=== PATIENT | female | born 1960 | race Caucasian/White ===

== ENCOUNTER 2023-07-18 09:06 | Emergency (ER) | payer MEDICAID ==
[~2023-07-18] VITALS: Ht 165.1 cm; Wt 54.5 kg
[~2023-07-18 09:06] MED LIST: NO HOME MEDS
[2023-07-18 09:27] VITALS: BP 102/60; PULSE 77; RESP 18; TEMP 97.8; O2SAT 96
[2023-07-18] MEDS ORDERED: CEFD300C3 PO (11:52)
== END 2023-07-18 12:03 | disposition home or self-care (01) ==
LOC: ER 09:07
DX: J40 Bronchitis, not specified as acute or chronic (principal); Z72.89 Other problems related to lifestyle; Z20.822 Contact with and (suspected) exposure to COVID-19; Z79.899 Other long term (current) drug therapy
CPT/HCPCS: 36415; 71046; 87502; 87503; 87811; 99284

== ENCOUNTER 2025-03-24 14:59 | Inpatient (IN) | payer MEDICARE, MEDICAID ==
[2025-03-23 22:00] VITALS: BP 137/85; PULSE 87; RESP 18; TEMP 97.3; O2SAT 96
[~2025-03-24] VITALS: Ht 175.3 cm; Wt 78.0 kg
[~2025-03-24 14:59] MED LIST changes: +CEFD300C3 PO
--- NOTE | 2025-03-24 15:22 | Physician Documentation ---
History of Present Illness ~ Chief Complaint: ALOC Stated Complaint: ALOC Time Seen by MD: 15:13 Primary Medical Doctor: NONE HPI History, review of systems, and physical examination are limited secondary to clinical condition. This is a 64-year-old female who was found wandering while wearing winter jacket in the 85 degree weather approximately a mi away from the address she gave us her home address. She was found to be altered. No obvious trigger provocation. Patient is not alert and oriented time or situation. She reports complaint of a right pinky pain. Social history is unknown Medication Reconciliation Allergies: Coded Allergies: No Known Allergies (Unverified , 03/24/25) Scheduled Cefdinir (Cefdinir), 300 MG PO BID Miscellaneous Medications Home Med List (No Home Medications), (Reported) Past Medical History Past Medical History: No Pertinent History Past Surgical History: no surgical history Alcohol Use: Occasionally Drug Use: none Lives with: Family Lives In: Home Occupation: unemployed Review of Systems ROS 10 point review of systems was performed and unless noted above in HPI is negative for acute process/complaint. Physical Exam Vital Signs: Temperature: 99.0, Source: Oral, Heart Rate: 152, Respiratory Rate: 16, BP: 191/101, Pulse Oximetry: 94, Weight: 78.000 Physical Exam GENERAL: Awake, alert, oriented, GCS 15, no apparent distress, non-toxic appearing, answers questions, follows commands appropriately. HEENT: Atraumatic, normocephalic, pupils equal, extraocular muscles intact, sclerae anicteric, mucus membranes moist, oropharynx is clear, no stridor. NECK: supple, full active range of motion, trachea midline, no thyromegaly, no lymphadenopathy, no JVD. CARDIOVASCULAR: Tachycardic and irregularly irregular rate/rhythm, no murmurs/gallops/rubs, Pulses are 2+ in all extremities and symmetric. Capillary refill less than 2 seconds. PULMONARY: Nonlabored, good air movement ,no respiratory distress, speaking in full sentences, clear to auscultation bilaterally, no wheezing, no ronchi, no rales, no accessory muscle use. GASTROINTESTINAL: Soft, non-tender, non-distended, normal active bowel sounds, no organomegaly, no pulsatile masses, no CVA tenderness. NEUROLOGIC: Lucid with normal mental status. Normal facial symmetry. Moves all extremities symmetrically and with purpose. No truncal ataxia. Speech is fluid without evidence of dysarthria or aphasia, no focal deficits appreciated. MUSCULOSKELETAL: There is full range of motion of all extremities. There is no joint pain or joint swelling or joint erythema. There is no muscle pain or tenderness or swelling. EXTREMITIES: warm, well-perfused, no cyanosis, no clubbing, no edema, no acute deformities. Skin: warm, dry, no rashes or lesions, no jaundice, no petechiae orpurpura. No ecchymosis. PSYCHIATRIC: Normal affect, normal insight, normal concentration. Focused exam: [Right pinky appears to be tender to palpation over the 1st joint, neurovascularly intact distally] Progress Results/Orders Results/Orders Orders - DELFINO RING DO Electrocardiogram (03/24/25 15:15) Chest,Single View (03/24/25 15:29) Saline Lock (03/24/25 15:15) Accucheck (03/24/25 15:15) Accucheck (03/24/25 17:15) Accucheck (03/24/25 19:15) Ct Head (03/24/25 15:45) Recheck Temp (03/24/25 ) Hand, Complete (3vw Min) (03/24/25 15:46) Cult Urine + [place] Ct (03/24/25 16:35) Apply Splint Finger Static (03/24/25 ) Page Hospitalist (03/24/25 16:39) Fill Out Med Reconciliation (03/24/25 16:39) Completed Orders - DELFINO RING DO Drug Screen, Urine (03/24/25 15:15) Electrocardiogram (03/24/25 15:15) Cbc/Diff (03/24/25 15:15) CK (03/24/25 15:15) ESR (03/24/25 15:15) C-Reactive Protein (03/24/25 15:15) PHOS (03/24/25 15:15) Pt Inr (03/24/25 15:15) PTT (03/24/25 15:15) Chest,Single View (03/24/25 15:29) PBNP (03/24/25 15:15) MG (03/24/25 15:15) TSH (03/24/25 15:15) Free T4 (03/24/25 15:15) Normal Saline 1000ml (Sodium Chloride 10 (03/24/25 15:15) Ct Head (03/24/25 15:45) CMP (03/24/25 15:15) Hs Troponin I W Calculations (03/24/25 15:15) Hs Troponin I W Calculations (03/24/25 17:15) Hs Troponin I W Calculations (03/24/25 18:15) Ethanol (03/24/25 15:15) Hand, Complete (3vw Min) (03/24/25 15:46) Ua W/Microscopic, Cult If Ind (03/24/25 16:12) Ceftriaxone 2gm/D5w 50ml Bag (Rocephin 2 (03/24/25 16:40) Normal Saline 1000ml (Sodium Chloride 10 (03/24/25 16:40) Diazepam Inj (Valium Inj) (03/24/25 16:40) Lacticsepsis (03/24/25 16:39) Vital Signs 03/24/25 03/24/25 03/24/25 15:03 15:19 16:45 Temp 99.0 99.0 Pulse 152 151 Resp 16 16 16 B/P (MAP) 191/101 191/101 (131) Pulse Ox 94 95 O2 Flow Rate 0 Laboratory Tests Test 03/24/25 15:32 03/24/25 16:12 03/24/25 16:56 White Blood Count 10.0 Red Blood Count 4.51 Hemoglobin 14.2 Hematocrit 41.3 Mean Corpuscular Volume 91.7 Mean Corpuscular Hemoglobin 31.4 H Mean Corpuscular Hemoglobin Concent 34.2 Red Cell Distribution Width 12.8 Platelet Count 235 Mean Platelet Volume 8.1 Neutrophils (%) (Auto) 77.8 H Lymphocytes (%) (Auto) 15.2 L Monocytes (%) (Auto) 5.7 Eosinophils (%) (Auto) 0.8 Basophils (%) (Auto) 0.5 Neutrophils # (Auto) 7.8 H Lymphocytes # (Auto) 1.5 Monocytes # (Auto) 0.6 Eosinophils # (Auto) 0.1 Basophils # (Auto) 0.0 CBC Comment Erythrocyte Sedimentation Rate 8 Prothrombin Time 10.9 INR International Normalized Ratio 1.1 Activated Partial Thromboplast Time 24 Coagulation Comments Sodium Level 146 H Potassium Level 3.5 Chloride Level 108 H Carbon Dioxide Level 23.2 L Anion Gap 15 Blood Urea Nitrogen 29 H Creatinine 1.41 H Estimated GFR/1.73 m2 37 BUN/Creatinine Ratio 20.6 H Glucose Level 114 H Calcium Level 9.5 Phosphorus Level 4.1 Magnesium Level 1.9 Total Bilirubin 0.9 Aspartate Amino Transf (AST/SGOT) 52 H Alanine Aminotransferase (ALT/SGPT) 26 Alkaline Phosphatase 75 Total Creatine Kinase 1290 H Troponin I High Sensitivity 31 36 C-Reactive Protein 1.90 H Pro-B-Type Natriuretic Peptide 2087 H Total Protein 7.5 Albumin 4.4 Globulin 3.1 Albumin/Globulin Ratio 1.4 Thyroid Stimulating Hormone (TSH) 3.47 Free Thyroxine 1.28 Chemistry Comments Ethyl Alcohol Level < 10 Urine Specimen Description Voided Urine Color Yellow Urine Clarity Cloudy Urine pH 7.5 Urine Specific Kidder 1.020 Urine Protein 100 H Urine Glucose (UA) Negative Urine Ketones 40 H Urine Occult Blood Small Urine Nitrite Negative Urine Bilirubin Small Urine Urobilinogen 0.2 Urine Leukocyte Esterase Moderate H Urine RBC 3-10 Urine WBC Tntc H Urine Squamous Epithelial Cells Few Urine Transitional Epithelial Cells Few Urine Triple Phosphate Crystals 1+ Urine Bacteria 4+ Urine Culture Indicated Indicated Volume Urine Centrifuged 10 ml Urine Comment Urine Opiates Screen Negative Urine Methadone Screen Negative Urine Fentanyl Screen Negative Urine Barbiturates Screen Negative Urine Phencyclidine Screen Negative Urine Amphetamines Screen Positive Urine Benzodiazepines Screen Negative Urine Cocaine Screen Negative Urine Cannabinoids Screen Negative Drug Screen Comment Lactic Acid Level 1.5 Troponin I High Sens Percent Delta 16 Troponin I Hi Sens Absolute Change 5 Microbiology Date/Time Source Procedure Growth Status 03/24/25 16:35 Urine Voided Urine Culture - Preliminary Gram Negative [place] Resulted EKG/XRAY/CT/US/VASC/MRI EKG : Additional Comment EKG was obtained and interpreted by myself shows sinus tachycardia, rate of 149, short IA, narrow QRS, no QT prolongation, normal axis, no STEMI. Medical Decision Making Findings Facility Status: ED Holds, [facility] process The plan was discussed with the patient, who demonstrates clear understanding of the plan and is in agreement with the plan unless otherwise noted in the chart. All questions have been answered, all concerns were addressed unless otherwise documented. I was available throughout their ED stay for frequent reassessment and questions. Differential Diagnoses (considered and possible or likely): [Dehydration, heat stroke, electrolyte derangement, UTI, pneumonia, occult bacteremia, alcohol intoxication, alcohol withdrawal, drug toxidrome, intracranial process such as bleed, mass] ??Differential Diagnoses (considered and unlikely, not requiring evaluation currently): [No evidence of lateralizing signs to suspect a stroke at this time] MDM Data Please see HPI for the following: Independent Historians and external Records Review. Historian: Very limited information from patient Independent Historians: ?[EMS crew, record review] Medication Management: [Reviewed medication list] Social History and determinants: [Reviewed] Please see the body of the note for the following: Any independent interpretations of ECG, imaging studies. All vitals signs/haemodynamics, ordered tests were independently reviewed and interpreted by myself. Nursing triage complaint and vitals reviewed, additional nursing notes were reviewed as available and I agree unless otherwise noted or documented in contradiction in the chart Vital Signs: Independently reviewed Labs: Independently interpreted Imaging: Independently interpreted Old Medical Records: Independently reviewed, see [facility] for relevant summary and information Pulse Oximetry: [97%s] interpreted as [normal on room air] by me [Wireless Manager: [Tachycardic and irregularly irregular what appears to be AFib with a RVR] reviewed and interpreted by me] Additionally notably showing: Persistently tachycardic with a sinus tachycardia, going into 170s, hypotensive, UA positive for UTI, CT is negative. Chest x-ray is unremarkable. Rest of laboratory workup was unremarkable. Tests considered but not ordered include: [Not applicable] Social Determinants of Health Impact: Patient was evaluated in [facility], or [facility] [place] access to healthcare due to below par ratio of patient to medical providers. [] Comorbid Conditions Impacting Present Evaluation and Care/Treatment: [Methamphetamine abuse] Management Discussions with other Healthcare Providers: [Hospitalist regarding admission] Treatment and Disposition Medication Management (Given or considered): [Fluid resuscitation was provided for treatment of clinically and/or laboratory apparent dehydration.]. See EMR for details Consideration for Hospitalization/Escalation/Deescalation of Care: Admission for observation has been considered, and appears to be necessary for resolution of her altered mental status. It is not clear where that this is methamphetamine psychosis, urosepsis, combined process. ?ED Course:?[@1521 patient informed the nurse that was taking care of her that she has done �a lot of meth today, but it does not feel like my regular meth�.] This has a degree of complexity to her altered mental status as noted above. UTI and was treated. Benzos and rate control established. Continues to be altered. ?Shared decision making:?[] Code status:?FULL Please see the full Electronic Medical Record for full details of nursing documentation, medications list, other records of complete past medical history and conditions, vital signs, laboratory studies, and any radiologic study interpretations by radiologists. Portions of this note were completed using Spoqa dictation software and as a result there may exist minor errors in spelling. I have reviewed elements of past family and social history and agree as included in note. Departure Disposition: 09 ADMITTED INPATIENT Impression: Primary Impression: Altered mental status Additional Impressions: Methamphetamine intoxication Acute kidney injury Urinary tract infection Sepsis Condition: Fair Referrals: NO PRIMARY CARE PROVIDER (PCP) Signature Scribe Signature: No scribe Attestation: This note accurately reflects clinical decisions, work performed by myself, DO MARÍA ELENA Mcbride NICHOLAS M DO March 24, 2025 15:22
--- NOTE | 2025-03-24 15:25 | ELECTROCARDIOGRAPH REPORT ---
[facility] Test Date: 2025-03-24 Test Time: 15:23:19 Pat Name: JAMES MILLER Department: [facility] Patient ID: [id number] Room: [place] [address] Gender: F Vegetable Farmworker: : 1960 Requested By: DELFINO RING Order Number: [id number] Reading MD: Dr. Anant Matthew Measurements Intervals [place] Rate: 149 P: 26 ME: 67 QRS: -81 QRSD: 91 T: 65 QT: 310 QTc: 488 Interpretive Statements Sinus tachycardia Left anterior fascicular block Abnormal R-wave progression, late transition ST depression, probably rate related Borderline prolonged QT interval Electronically Signed On 03-25-2025 15:45:[address] Anant Matthew Please click the below link to view image of tracing.
[2025-03-24] MEDS: normal saline 1000ML IV soln IVB ONE (15:35)
--- NOTE | 2025-03-24 15:38 | RADIOLOGY REPORT ---
CHEST RADIOGRAPH Indication: Weakness Technique: Single frontal view of the chest was obtained Comparison: None FINDINGS: Lines and Tubes: None Lungs: No focal consolidation. Pleura: No effusion. No pneumothorax. Cardiomediastinal contours: Unremarkable Bones: No acute osseous abnormality. IMPRESSION: No acute cardiopulmonary disease.
--- NOTE | 2025-03-24 16:00 | RADIOLOGY REPORT ---
CLINICAL INFORMATION: 64 years old, Female; Altered mental status. TECHNIQUE: Axial imaging was obtained through the brain without contrast. Coronal and sagittal reform atted images were obtained, reviewed, and stored. Images were reviewed in brain and bone windows. Al l CT scans at this medical facility are performed using dose modulation techniques as appropriate to a performed exam including the following: Automated exposure control was utilized; adjustment of the MA and/or KV according to patient size; and use of iterative reconstruction technique. CTDIvol = 49.5 3 mGy DLP = 1006.35 mGy-cm COMPARISON: None FINDINGS: Motion artifact limits evaluation. No acute intracranial hemorrhage visualized given the li mitations of the exam. Scattered areas of hypoattenuation are seen in the periventricular and subcort ical white matter, which are nonspecific but most likely sequelae of small vessel ischemic disease. C hronic lacunar infarct in the left basal ganglia. The ventricles and sulci are within normal limits i n size for age. Basal cisterns are patent. No acute calvarial abnormality identified given the limit ations of the examination. Paranasal sinuses and mastoid air cells appear grossly clear. IMPRESSION: 1. Motion limited study. 2. No acute abnormality identified given the limitations of the examination.
[2025-03-24 16:04] LABS: BASOPHILS % (AUTO) 0.5 % (0-1); EOSINOPHILS # (AUTO) 0.1 X10'3 (0-0.9); EOSINOPHILS % (AUTO) 0.8 % (0-6); HEMATOCRIT 41.3 % (35.0-45.0); HEMOGLOBIN 14.2 g/dl (12.0-16.0); LYMPHOCYTES # (AUTO) 1.5 X10'3 (1.1-4.8); LYMPHOCYTES % (AUTO) 15.2 % (21-51); MEAN CORPUSCULAR HEMOGLOBIN 31.4 PG (27.0-31.0); MEAN CORPUSCULAR HGB CONC 34.2 g/dL (33.0-36.5); MEAN CORPUSCULAR VOLUME 91.7 FL (78-98); MEAN PLATELET VOLUME 8.1 FL (7.4-10.4); MONOCYTES # (AUTO) 0.6 X10'3 (0-0.9); MONOCYTES % (AUTO) 5.7 % (2-12); NEUTROPHILS # (AUTO) 7.8 X10'3 (1.8-7.7); NEUTROPHILS % (AUTO) 77.8 % (42-75); PLATELET COUNT 235 X10'3 (140-440); RED BLOOD COUNT 4.51 X10'6 (4.20-5.60); RED CELL DISTRIBUTION WIDTH 12.8 % (11.5-14.5)
--- NOTE | 2025-03-24 16:21 | RADIOLOGY REPORT ---
CLINICAL INDICATION: Right pinky pain TECHNIQUE: Right DI HAND, COMPLETE (3VW MIN) Comparison: None FINDINGS/IMPRESSION: : Subtle linear lucency at the ulnar base of the 5th proximal phalanx is suspicious for a nondisplaced fracture. Diffuse degenerative changes of the MCP and D IP joints
[2025-03-24 16:22] LABS: BILIRUBIN,URINE SMALL (Neg); CLARITY,URINE CLOUDY (Clear); COLOR,URINE YELLOW (Yellow); GLUCOSE, URINE NEGATIVE (Neg); KETONES,URINE 40 mg/dl (Neg); LEUKOCYTE ESTERASE ,URINE MODERATE (Neg); NITRITES, URINE NEGATIVE (Neg); OCCULT BLOOD,URINE SMALL (Neg); PH,URINE 7.5 (4.8-8.0); PROTEIN,URINE 100 mg/dl (Neg); UROBILINOGEN,URINE 0.2 E.U/dL (0.2-1.0)
[2025-03-24 16:24] LABS: ALANINE AMINOTRANSFERASE 26 U/L (12-78); ALBUMIN 4.4 G/DL (3.4-5.0); ALBUMIN/GLOBULIN RATIO 1.4 (1.1-1.5); ALKALINE PHOSPHATASE 75 IU/L (46-116); ANION GAP 15 (8-16); ASPARTATE AMINO TRANSFERASE 52 U/L (10-37); BILIRUBIN,TOTAL 0.9 MG/DL (0.1-1.0); BLOOD UREA NITROGEN 29 MG/DL (7-18); BUN/CREATININE RATIO 20.6 (10.0-20.0); CALCIUM 9.5 MG/DL (8.5-10.1); CHLORIDE 108 MMOL/L (99-107); CREATININE 1.41 MG/DL (0.40-0.90); GLUCOSE 114 MG/DL (70-104); POTASSIUM 3.5 MMOL/L (3.5-5.1); SODIUM 146 MMOL/L (135-145); TOTAL CARBON DIOXIDE 23.2 MMOL/L (24-32); TOTAL PROTEIN 7.5 G/DL (6.4-8.2); eCRCL 41 ML/MIN; eGFR 37 ML/MIN
[2025-03-24 16:27] LABS: UA COLLECTION TYPE VOIDED
[2025-03-24 16:28] LABS: APTT 24 SECONDS (22-32); INR 1.1 INR; PROTHROMBIN TIME 10.9 SECONDS (9.0-12.0)
[2025-03-24 16:34] LABS: BACTERIA,URINE 4+ /HPF (Neg); WBC,URINE TNTC /HPF (0-4)
[2025-03-24 16:35] LABS: SQUAMOUS EPITHELIAL CELL,UR FEW /LPF (FEW); TRANSITIONAL EPI CELLS,URINE FEW /HPF; TRIPLE PHOSPHATE CRYST 1+ /HPF (NEGATIVE)
[2025-03-24 16:36] LABS: FREE T4 (FREE THYROXINE) 1.28 NG/DL (0.73-1.40); MAGNESIUM 1.9 MG/DL (1.5-2.4); PHOSPHORUS 4.1 MG/DL (2.3-4.5); PRO BRAIN NATRIURETIC PEPTIDE 2087 PG/ML (0-125); THYROID STIMULATING HORMONE 3.47 ulU/ml (0.34-4.50)
[2025-03-24 16:40] LABS: CREATINE KINASE 1290 U/L (26-192)
[2025-03-24] MEDS ORDERED: diltiazem 5mg/ml 5ml inj. IV ONE (16:40)
[2025-03-24 16:41] LABS: ETHANOL < 10 MG/DL (<10)
[2025-03-24] MEDS: normal saline 1000ml 1,000 ML IV ONE (16:44)
[2025-03-24 16:55] LABS: URINE AMPHETAMINE SCREEN POSITIVE (Neg); URINE BARBITUATE SCREEN NEGATIVE (Neg); URINE BENZODIAZEPINES SCREEN NEGATIVE (Neg); URINE CANNABINOID SCREEN NEGATIVE (Neg); URINE COCAINE SCREEN NEGATIVE (Neg); URINE METHADONE SCREEN NEGATIVE (Neg); URINE OPIATE SCREEN NEGATIVE (Neg); URINE PHENCYCLIDINE SCREEN NEGATIVE (Neg)
[2025-03-24] MEDS: CefTRIAXone 2gm/D5W 50ml BAG 50 ML IV ONE (16:57)
[2025-03-24] MEDS: diazepam inj 5 MG/ML inj. IV ONE (16:59)
[2025-03-24] MEDS ORDERED: potassium Cl 20 mEq SR tablet PO PRN (17:25)
[2025-03-24] MEDS ORDERED: HYDROcodone/acetaminophen 5mg/325mg tablet PO PRN (17:25)
[2025-03-24] MEDS ORDERED: ondansetron/PF 4mg/2ml inj IV PRN (17:25)
[2025-03-24] MEDS ORDERED: diphenhydrAMINE 25mg capsule PO PRN (17:25)
[2025-03-24] MEDS ORDERED: magnesium hydroxide 30ml (MOM) UD suspension PO PRN (17:25)
[2025-03-24] MEDS ORDERED: diphenhydrAMINE 50 mg/ml inj IV PRN (17:25)
[2025-03-24] MEDS ORDERED: magnesium sulf-water 2g/50mL 50 ML IV PRN (17:25)
[2025-03-24] MEDS ORDERED: HYDROcodone/acetaminophen 10/325mg tab PO PRN (17:25)
[2025-03-24] MEDS ORDERED: bisacodyl 10mg suppository rectal RC PRN (17:25)
[2025-03-24] MEDS ORDERED: magnesium sulf-water 4G/100mL 100 ML IV PRN (17:25)
[2025-03-24] MEDS ORDERED: magnesium Cl slow-release 64mg tablet PO PRN (17:25)
[2025-03-24] MEDS ORDERED: acetaminophen 325mg tablet PO PRN ×2 (17:25)
[2025-03-24] MEDS ORDERED: ondansetron 4mg rapidly disintigrating tab PO PRN (17:25)
[2025-03-24] MEDS ORDERED: potassium Cl 40MEQ/1/2NS 520ml 520 ML IV PRN (17:25)
[2025-03-24] MEDS ORDERED: morphine 2 MG/ML inj. syringe IV PRN ×2 (17:25)
[2025-03-24] MEDS ORDERED: mag hydrox/Alum hydrox/simeth 30ml oral suspension PO PRN (17:25)
[2025-03-24] MEDS ORDERED: acetaminophen 650mg rectal suppository RC PRN (17:25)
[2025-03-24] MEDS ORDERED: diazepam inj 5 MG/ML inj. IV PRN (18:05)
[2025-03-24] MEDS: dextrose 5%-1/2 normal saline 1,000 ML IV SCH (18:06)
--- NOTE | 2025-03-24 18:12 | HISTORY AND PHYSICAL ---
History & Physical Providers to Chief complaint, altered level of consciousness ~ History of Present Illness Reason for Admit\Complaint: As above History of Present Illness This is a 64 years old white female, with history of multiple medical problems including chronic kidney disease, hypertension uncontrolled, chronic CHF ejection fraction 50% associated with pulmonary hypertension March 21, 2025, history of chronic amphetamine abuse including currently, chronic tobacco abuse including currently, presented today to emergency department chief complaint altered level of consciousness; History, review of systems, and physical examination are limited secondary to clinical condition. This is a 64-year-old female who was found wandering while wearing winter jacket in the 85 degree weather approximately a mi away from the address she gave us her home address. She was found to be altered. No obvious trigger provocation. Patient is not alert and oriented time or situation.She reports complaint of a right pinky pain. Emergency department she was evaluated by physician was diagnosed with chronic amphetamine abuse including currently, acute amphetamine intoxication, rhabdomyolysis, acute renal failure, UTI, sepsis and decision was made to admit patient for further evaluation and treatment, patient started on IV fluids and IV antibiotics. No additional complaint or concern. Allergies: Coded Allergies: No Known Allergies (Unverified , 03/24/25) Active prescriptions I reviewed reconciled Home Medications Home Medications Active Cefdinir 300 Mg Capsule 300 Mg PO BID 7 Days Reported No Home Medications (Home Med List) Each Past Medical History Past Medical History As in HPI Past Surgical History Surgical History Comment As in HPI Past Social History Social History Comment Positive for chronic amphetamine and tobacco abuse including currently, deny alcohol abuse, live with the family good social support Health Maintenance Health Maintenance Noncontributory ROS ROS Constitutional : no fever , no chills, or weakness. No diaphoresis. Allergic/Immunologic, no lymphadenopathy, no hives, no skin eruptions. Eyes, no recent visual changes, no eye pain, no photophobia. Ears, nose, mouth, throat, no sore throat, no nosebleed, no ear pain. Cardiovascular, no palpitations, skipped beats, chest pain, no peripheral edema, Respiratory, no dyspnea, orthopnea, cough, hemoptysis, chest wall pain. Gastrointestinal, no abdominal pain, nausea, vomiting, constipation or diarrhea. : no dysuria, hematuria, pelvic pain, urethral d/c. Endocrine, no polyuria, polydipsia, recent unintentional weight gain or loss. Hematologic/Lymphatic, no petechiae, no enlarged lymph nodes, no bone pain. Integumentary, no rash, no skin lesions, Musculoskeletal, no muscle aches, or pain, no muscle cramps, no recent change in gait Neurological, positive for altered level of consciousness, no dizziness, no headache, no syncope, no paresthesia. Psychiatric, no delusions, visual hallucinations, or hearing hallucinations. ROS - in rest is as in HPI. Exam Vitals: Vital Signs Date Time Temp Pulse Resp B/P (MAP) Pulse Ox O2 Delivery O2 Flow Rate FiO2 03/24/25 16:45 16 03/24/25 15:19 99.0 151 95 0 Vital signs, stable ,afebrile. Tachycardic, febrile, Pulse Oximetry reflects adequate oxygenation. BMI is 25, weight 78 kg General: well developed, well nourished. Awake , alert, and oriented x4, resting comfortably in the bed, in no acute distress . Skin: Warm, dry, no pallor, no rash or petechiae. HEENT: Atraumatic, normocephalic, EOMI, anicteric sclera B; pink conjunctiva; PERRLA, normal oropharynx, moist oral and nasal mucosa. Tympanic membrane , nose , throat clear. Neck: Trachea midline. Supple, full range of motion, no JVD, bruit , hepatojugular reflex , lymphadenopathy or masses, or other lesions Cardiac: Regular rhythm, regular rate no murmurs, rubs, or gallops. Normal S1 and S2, no S3 noticed. PMI is normal. Respiratory: Equal breath sounds bilaterally, no tachypnea; lungs clear to auscultation bilaterally, no wheezing ,rub or rales, or crackles. Chest wall is symmetric and without deformity. No signs of trauma. Chest wall is nontender. No signs of respiratory distress. Resonance is normal upon percussion bilaterally. Gastrointestinal: Abdomen symmetric, non-distended, soft, non-tender, normal bowel sounds x4 quadrant, normoactive, no hepatosplenomegaly , no masses , no bruit, no flank pain bilaterally. No voluntary guarding, rebound, or rigidity. No tenderness to percussion. No pulsatile masses. Equal femoral pulses. No Glez's sign or McBurney point tenderness. Back; no CVA tenderness bilaterally, no deformities. Neck and back are without deformity as well. No tenderness noted on palpation of the spinous processes. Spinous processes are midline. Cervical, thoracic, and lumbar paraspinal muscles are not tender and are without spasm. : Declined by patient Musculoskeletal: Extremities, normal range of motion, non-tender, muscle strength 5/5 x 4. Negative Homans signs bilaterally on lower extremity. Distal pulses full symmetrical, no clubbing, cyanosis , edema. Neurological: Speech is clear, alert, and oriented x 4. No motor or sensory deficit, deep tendon reflexes normal, cerebellar intact. Cranial nerves II-XII intact. Psych: Alert and or appropriate, normal affect. Vascular: Good distal pulses, which are equal x4; capillary refill less than 2 seconds. Lymphatic, no lymphadenopathy. Diagnostic Data Last Recorded Lab Results: 03/24/25 1532 03/24/25 1532 Diagnostic Data: Laboratory Tests Test 03/24/25 15:32 Prothrombin Time 10.9 SECONDS (9.0-12.0) INR International Normalized Ratio 1.1 INR Activated Partial Thromboplast Time 24 SECONDS (22-32) Coagulation Comments Counseling Services Smoking & Tobacco Cessation: 3-10 Minutes Advance Care Planning Advanced Care plannin - 30 Minutes Additional Plan Assessment Hypertensive emergency Acute amphetamine intoxication Chronic amphetamine use disorder Chronic tobacco abuse including currently Acute renal failure metabolic encephalopathy secondary to all of the above UTI complicated Hypernatremia Sepsis secondary to UTI Rhabdomyolysis Dehydration associated with ketonuria A right 5th seeing of the right hand closed nondisplaced fracture Chronic kidney disease Plan IV fluids keep patient well hydrated euvolemic Correct electrolytes A right hand 5th finger splint PT evaluation and treatment Navigator consult substance abuse Consulted for 5 minutes to stop using tobacco patient agrees started to nicotine patch Additional lab work pending Benzodiazepine on board I reconciled home medications DVT gastropathy prophylaxis addressed Sepsis Screening Reassessment Date: March 24, 2025 Date of Service: March 24, 2025 Billing Provider: MATTY GARCIA MD Common Visit Codes: 94982-JNPPAAE INP/OBS CARE (HIGH) Secondary Visit Codes: 92306-VDABO CHNG SMOKING 3-10M, 65824-[id number] CARE PLAN 30 MINUTES MATTY GARCIA MD March 24, 2025 18:12
[2025-03-24] MEDS: K and/or MAG REPLACEMENT MC SCH (19:59)
[2025-03-24] MEDS: docusate sod 100mg capsule PO SCH (20:04)
[2025-03-24] MEDS ORDERED: temazepam 15mg capsule PO PRN (21:00)
[2025-03-24 22:00] VITALS: BP 137/85; PULSE 87; RESP 18; TEMP 97.3; O2SAT 96
[2025-03-25] VITALS (9 sets, daily range): BP systolic 105–150; BP diastolic 63–86; PULSE 68–79; RESP 12–22; TEMP 97.5–98.6; O2SAT 95–98
[2025-03-25 06:05] LABS: BASOPHILS % (AUTO) 0.6 % (0-1); EOSINOPHILS # (AUTO) 0.2 X10'3 (0-0.9); EOSINOPHILS % (AUTO) 3.7 % (0-6); HEMATOCRIT 33.5 % (35.0-45.0); HEMOGLOBIN 11.6 g/dl (12.0-16.0); LYMPHOCYTES % (AUTO) 30.6 % (21-51); MEAN CORPUSCULAR HEMOGLOBIN 31.6 PG (27.0-31.0); MEAN CORPUSCULAR HGB CONC 34.5 g/dL (33.0-36.5); MEAN CORPUSCULAR VOLUME 91.6 FL (78-98); MEAN PLATELET VOLUME 7.7 FL (7.4-10.4); MONOCYTES # (AUTO) 0.6 X10'3 (0-0.9); MONOCYTES % (AUTO) 8.8 % (2-12); NEUTROPHILS # (AUTO) 3.6 X10'3 (1.8-7.7); NEUTROPHILS % (AUTO) 56.3 % (42-75); PLATELET COUNT 183 X10'3 (140-440); RED BLOOD COUNT 3.66 X10'6 (4.20-5.60); RED CELL DISTRIBUTION WIDTH 12.8 % (11.5-14.5); WHITE BLOOD COUNT 6.5 X10'3 (4.5-11.0)
[2025-03-25 06:22] LABS: ALANINE AMINOTRANSFERASE 17 U/L (12-78); ALBUMIN 3.1 G/DL (3.4-5.0); ALBUMIN/GLOBULIN RATIO 1.2 (1.1-1.5); ALKALINE PHOSPHATASE 59 IU/L (46-116); ANION GAP 9 (8-16); ASPARTATE AMINO TRANSFERASE 44 U/L (10-37); BILIRUBIN,TOTAL 0.7 MG/DL (0.1-1.0); BLOOD UREA NITROGEN 17 MG/DL (7-18); BUN/CREATININE RATIO 19.5 (10.0-20.0); CALCIUM 8.1 MG/DL (8.5-10.1); CHLORIDE 112 MMOL/L (99-107); CHOL/HDL RATIO 2.7 (0.00-4.99); CHOLESTEROL 164 MG/DL (0-200); CREATININE 0.87 MG/DL (0.40-0.90); GLUCOSE 128 MG/DL (70-104); HDL CHOLESTEROL 61 MG/DL (35-60); LDL CHOLESTEROL 89 MG/DL (50-100); MAGNESIUM 1.7 MG/DL (1.5-2.4); POTASSIUM 3.1 MMOL/L (3.5-5.1); SODIUM 146 MMOL/L (135-145); TOTAL PROTEIN 5.7 G/DL (6.4-8.2); TRIGLYCERIDES 72 MG/DL (20-135); eCRCL 66 ML/MIN; eGFR 65 ML/MIN
[2025-03-25] MEDS: CefTRIAXone 2gm/D5W 50ml BAG 50 ML IV SCH (08:11)
[2025-03-25] MEDS: pantoprazole 40mg Tablet.DR PO SCH (08:12)
[2025-03-25] MEDS: nicotine 21mg patch - 24 hr TD SCH (08:12)
[2025-03-25] MEDS: potassium Cl 20 mEq SR tablet PO PRN (08:13)
--- NOTE | 2025-03-25 20:55 | PROGRESS NOTE ---
Daily Progress Note Providers to CC ~ feels better today, better appetite better sleep Central Line/PICC still needed: No Joseph-Non Protocol Joseph Indications Met/Not Met: F/C Indications Not Met Antibiotic Timeout Antibiotic Ordered?: Yes MRSA Education MRSA Education Provided to pt: Yes Subjective As above Objective Vital Signs Date Time Temp Pulse Resp B/P (MAP) Pulse Ox O2 Delivery O2 Flow Rate FiO2 03/25/25 19:29 22 95 Room Air 03/25/25 18:30 80 03/25/25 15:00 97.7 121/63 (82) 03/24/25 18:07 0 Vital signs, stable ,afebrile. Pulse Oximetry reflects adequate oxygenation. General: well developed, well nourished. Awake , alert, and oriented x4, resting comfortably in the bed, in no acute distress . Skin: Warm, dry, no pallor, no rash or petechiae. HEENT: Atraumatic, normocephalic, EOMI, anicteric sclera B; pink conjunctiva; PERRLA, normal oropharynx, moist oral and nasal mucosa. Tympanic membrane , nose , throat clear. Neck: Trachea midline. Supple, full range of motion, no JVD, bruit , hepatojugular reflex , lymphadenopathy or masses, or other lesions Cardiac: Regular rhythm, regular rate no murmurs, rubs, or gallops. Normal S1 and S2, no S3 noticed. PMI is normal. Respiratory: Equal breath sounds bilaterally, no tachypnea; lungs clear to auscultation bilaterally, no wheezing ,rub or rales, or crackles. Chest wall is symmetric and without deformity. No signs of trauma. Chest wall is nontender. No signs of respiratory distress. Resonance is normal upon percussion bilaterally. Gastrointestinal: Abdomen symmetric, non-distended, soft, non-tender, normal bowel sounds x4 quadrant, normoactive, no hepatosplenomegaly , no masses , no bruit, no flank pain bilaterally. No voluntary guarding, rebound, or rigidity. No tenderness to percussion. No pulsatile masses. Equal femoral pulses. No Glez's sign or McBurney point tenderness. Back; no CVA tenderness bilaterally, no deformities. Neck and back are without deformity as well. No tenderness noted on palpation of the spinous processes. Spinous processes are midline. Cervical, thoracic, and lumbar paraspinal muscles are not tender and are without spasm. Musculoskeletal: Extremities, normal range of motion, non-tender, muscle strength 5/5 x 4. Negative Homans signs bilaterally on lower extremity. Distal pulses full symmetrical, no clubbing, cyanosis , edema. Neurological: Speech is clear, alert, and oriented x 4. No motor or sensory deficit, deep tendon reflexes normal, cerebellar intact. Cranial nerves II-XII intact. Psych: Alert and or appropriate, normal affect. Vascular: Good distal pulses, which are equal x4; capillary refill less than 2 seconds. Lymphatic, no lymphadenopathy. Result Diagram: 03/25/25 0530 03/25/25 0530 Coagulation Studies Laboratory Tests Test 03/24/25 15:32 Prothrombin Time 10.9 SECONDS (9.0-12.0) INR International Normalized Ratio 1.1 INR Activated Partial Thromboplast Time 24 SECONDS (22-32) Coagulation Comments Problem\Assessment\Plan Assessment Hypertensive emergency Acute amphetamine intoxication Chronic amphetamine use disorder Chronic tobacco abuse including currently Acute renal failure metabolic encephalopathy secondary to all of the above UTI complicated Hypernatremia Sepsis secondary to UTI Rhabdomyolysis Dehydration associated with ketonuria A right 5th seeing of the right hand closed nondisplaced fracture Chronic kidney disease Plan IV fluids keep patient well hydrated euvolemic Correct electrolytes A right hand 5th finger splint PT evaluation and treatment Navigator consult substance abuse On nicotine patch Additional lab work pending Benzodiazepine on board I reconciled home medications DVT gastropathy prophylaxis addressed Sepsis Screening Reassessment Date: March 25, 2025 Date of Service: March 25, 2025 Billing Provider: MATTY GARCIA MD Common Visit Codes: [id number] INP/OBS CARE(HIGH) MATTY GARCIA MD March 25, 2025 20:54
[2025-03-26] MEDS: magnesium sulf-water 2g/50mL 50 ML IV ONE (01:42)
[2025-03-26 02:00] VITALS: BP 153/76; PULSE 70; RESP 20; TEMP 98.1; O2SAT 96
[2025-03-26 05:35] LABS: BASOPHILS % (AUTO) 0.7 % (0-1); EOSINOPHILS # (AUTO) 0.2 X10'3 (0-0.9); EOSINOPHILS % (AUTO) 4.4 % (0-6); HEMATOCRIT 35.3 % (35.0-45.0); HEMOGLOBIN 12.1 g/dl (12.0-16.0); LYMPHOCYTES # (AUTO) 1.8 X10'3 (1.1-4.8); LYMPHOCYTES % (AUTO) 33.7 % (21-51); MEAN CORPUSCULAR HEMOGLOBIN 31.8 PG (27.0-31.0); MEAN CORPUSCULAR HGB CONC 34.2 g/dL (33.0-36.5); MEAN PLATELET VOLUME 7.9 FL (7.4-10.4); MONOCYTES # (AUTO) 0.5 X10'3 (0-0.9); NEUTROPHILS # (AUTO) 2.8 X10'3 (1.8-7.7); NEUTROPHILS % (AUTO) 52.2 % (42-75); PLATELET COUNT 182 X10'3 (140-440); RED CELL DISTRIBUTION WIDTH 12.8 % (11.5-14.5); WHITE BLOOD COUNT 5.3 X10'3 (4.5-11.0)
[2025-03-26 06:00] VITALS: BP 169/67; PULSE 67; RESP 15; TEMP 97; O2SAT 98
[2025-03-26 06:02] LABS: ALANINE AMINOTRANSFERASE 16 U/L (12-78); ALBUMIN 2.7 G/DL (3.4-5.0); ALKALINE PHOSPHATASE 62 IU/L (46-116); ANION GAP 9 (8-16); ASPARTATE AMINO TRANSFERASE 30 U/L (10-37); BILIRUBIN,TOTAL 0.2 MG/DL (0.1-1.0); BLOOD UREA NITROGEN 10 MG/DL (7-18); BUN/CREATININE RATIO 12.5 (10.0-20.0); CALCIUM 8.2 MG/DL (8.5-10.1); CHLORIDE 114 MMOL/L (99-107); CREATINE KINASE 412 U/L (26-192); GLUCOSE 102 MG/DL (70-104); MAGNESIUM 2.2 MG/DL (1.5-2.4); POTASSIUM 3.9 MMOL/L (3.5-5.1); SODIUM 146 MMOL/L (135-145); TOTAL CARBON DIOXIDE 23.5 MMOL/L (24-32); TOTAL PROTEIN 5.5 G/DL (6.4-8.2); eCRCL 72 ML/MIN; eGFR 72 ML/MIN
[2025-03-26 11:00] VITALS: BP 172/95; PULSE 72; RESP 15; TEMP 97.7; O2SAT 99
[2025-03-26] MEDS: HYDROchlorothiazide 25mg tablet PO ONE (12:03)
[2025-03-26] MEDS: hydrALAZINE 20mg/ml inj. IV ONE (12:04)
[2025-03-26] MEDS ORDERED: LISI10TA27 PO (12:13)
[2025-03-26 15:00] VITALS: BP 143/85; PULSE 79; RESP 22; TEMP 98.2; O2SAT 96
--- NOTE | 2025-03-26 20:40 | DISCHARGE SUMMARY ---
Discharge Summary Providers to ~ no new complaint today, asking to be discharged home Discharge Summary Assessment Hypertensive emergency Acute amphetamine intoxication Chronic amphetamine use disorder Chronic tobacco abuse including currently Acute renal failure metabolic encephalopathy secondary to all of the above UTI complicated Hypernatremia Sepsis secondary to UTI Rhabdomyolysis Dehydration associated with ketonuria A right 5th seeing of the right hand closed nondisplaced fracture Chronic kidney disease Admission Diagnosis: Sepsis Admission Diagnosis Comment: Hypertensive emergency Acute amphetamine intoxication Chronic amphetamine use disorder Chronic tobacco abuse including currently Acute renal failure metabolic encephalopathy secondary to all of the above UTI complicated Hypernatremia Sepsis secondary to UTI Rhabdomyolysis Dehydration associated with ketonuria A right 5th seeing of the right hand closed nondisplaced fracture Chronic kidney disease Hospital Course DATE OF ADMISSION: March 24, 2025 DATE OF DISCHARGE: March 2606/2025 Discharge Diagnosis\Comment: Hypertensive emergency Acute amphetamine intoxication Chronic amphetamine use disorder Chronic tobacco abuse including currently Acute renal failure metabolic encephalopathy secondary to all of the above UTI complicated Hypernatremia Sepsis secondary to UTI Rhabdomyolysis Dehydration associated with ketonuria A right 5th seeing of the right hand closed nondisplaced fracture Chronic kidney disease Operations\Procedures: Non Consultants: Non Complications: Non Condition on DC: Stable Discharge Summary: This is a 64 years old white female, with history of multiple medical problems including chronic kidney disease, hypertension uncontrolled, chronic CHF ejection fraction 50% associated with pulmonary hypertension March 21, 2025, history of chronic amphetamine abuse including currently, chronic tobacco abuse including currently, presented today to emergency department chief complaint altered level of consciousness; History, review of systems, and physical examination are limited secondary to clinical condition. This is a 64-year-old female who was found wandering while wearing winter jacket in the 85 degree weather [place] away from the address she gave us her home address. She was found to be altered. No obvious trigger provocation. Patient is not alert and oriented time or situation.She reports complaint of a right pinky pain. Emergency department she was evaluated by physician was diagnosed with chronic amphetamine abuse including currently, acute amphetamine intoxication, rhabdomyolysis, acute renal failure, UTI, sepsis and decision was made to admit patient for further evaluation and treatment, patient started on IV fluids and IV antibiotics. No additional complaint or concern. After admission patient was extensively evaluated and treated today she feels better has no complaint asking to be discharged home, medication reconciled, recommended to follow with PCP in the morning, today on physical exam Vital signs, stable ,afebrile. Pulse Oximetry reflects adequate oxygenation. General: well developed, well nourished. Awake , alert, and oriented x4, resting comfortably in the bed, in no acute distress . Skin: Warm, dry, no pallor, no rash or petechiae. HEENT: Atraumatic, normocephalic, EOMI, anicteric sclera B; pink conjunctiva; PERRLA, normal oropharynx, moist oral and nasal mucosa. Tympanic membrane , nose , throat clear. Neck: Trachea midline. Supple, full range of motion, no JVD, bruit , hepatojugular reflex , lymphadenopathy or masses, or other lesions Cardiac: Regular rhythm, regular rate no murmurs, rubs, or gallops. Normal S1 a nd S2, no S3 noticed. PMI is normal. Respiratory: Equal breath sounds bilaterally, no tachypnea; lungs clear to auscultation bilaterally, no wheezing ,rub or rales, or crackles. Chest wall is symmetric and without deformity. No signs of trauma. Chest wall is nontender. No signs of respiratory distress. Resonance is normal upon percussion bilaterally. Gastrointestinal: Abdomen symmetric, non-distended, soft, non-tender, normal bowel sounds x4 quadrant, normoactive, no hepatosplenomegaly , no masses , no bruit, no flank pain bilaterally. No voluntary guarding, rebound, or rigidity. No tenderness to percussion. No pulsatile masses. Equal femoral pulses. No Glez's sign or McBurney point tenderness. Back; no CVA tenderness bilaterally, no deformities. Neck and back are without deformity as well. No tenderness noted on palpation of the spinous processes. Spinous processes are midline. Cervical, thoracic, and lumbar paraspinal muscles are not tender and are without spasm. Musculoskeletal: Extremities, normal range of motion, non-tender, muscle strength 5/5 x 4. Negative Homans signs bilaterally on lower extremity. Distal pulses full symmetrical, no clubbing, cyanosis , edema. Neurological: Speech is clear, alert, and oriented x 4. No motor or sensory deficit, deep tendon reflexes normal, cerebellar intact. Cranial nerves II-XII intact. Psych: Alert and or appropriate, normal affect. Vascular: Good distal pulses, which are equal x4; capillary refill less than 2 seconds. Lymphatic, no lymphadenopathy. *Problems/Diagnosis: (1) Sepsis Status: Acute (2) Methamphetamine intoxication Status: Acute Total Time Spent on D/C: > 30 Minutes Date of Service: March 26, 2025 Billing Provider: MATTY GARCIA MD Common Visit Codes: [id number] DISCH DAY >30min MATTY GARCIA MD March 26, 2025 20:40
== END 2025-03-26 16:43 | disposition home or self-care (01) | DRG 871 ==
LOC: ER 14:59 → ED HOLD 17:33 → PCU 3S 21:32
PROVIDERS: ADMIT Family Medicine; ATTEND Family Medicine
DX: A41.9 Sepsis, unspecified organism (principal); G93.41 Metabolic encephalopathy; N17.0 Acute kidney failure with tubular necrosis; N39.0 Urinary tract infection, site not specified; E87.0 Hyperosmolality and hypernatremia; I16.1 Hypertensive emergency; I13.0 Hypertensive heart and chronic kidney disease with heart failure and stage 1 through stage 4 chronic kidney disease, or unspecified chronic kidney disease; M62.82 Rhabdomyolysis; E86.0 Dehydration; N18.9 Chronic kidney disease, unspecified; E78.5 Hyperlipidemia, unspecified; I50.9 Heart failure, unspecified; F15.129 Other stimulant abuse with intoxication, unspecified; S62.91XA Unspecified fracture of right hand, initial encounter for closed fracture; X58.XXXA Exposure to other specified factors, initial encounter; Y93.89 Activity, other specified; Y92.89 Other specified places as the place of occurrence of the external cause; Y99.8 Other external cause status; Z79.899 Other long term (current) drug therapy; Z72.0 Tobacco use
CPT/HCPCS: 36415; 70450; 71045; 73130; 80053; 80061; 80305; 80320; 81001; 82550; 83036; 83605; 83735; 83880; 84100; 84439; 84443; 84484; 85025; 85610; 85651; 85730; 86140; 87040; 87077; 87081; 87088; 87186; 93005; 97116; 97162; 99285; G0378; J0360; J0696; J3360; J7030; J7040